=== PATIENT | female | born 1940 | race Caucasian/White ===

== ENCOUNTER 2024-01-29 13:27 | Emergency (ER) | payer MEDICARE, SELFPAY ==
--- NOTE | 2024-01-29 13:34 | ED.MUSCINJ ---
HPI-Injury
General
Chief Complaint: Musculo-Skeletal Complaint
Source: patient, ambulance crew and [facility] records
Exam Limitations: dementia
Time Seen by Provider: 01/29/24 13:34
Nursing documentation reviewed up to this point in time: agreed with
History of Present Illness-Injury
Initial Injury comments:
83-year-old female who presents from [facility] dementia unit for left leg pain. Pt poor historian, complaining of left knee pain mainly but also low back pain, points up and down left buttock to identify where pain is, continues to deny right
leg pain. She is constantly moving and kicking out her right leg seemingly uncontrollably. Per EMS, no known recent falls
Son arrives and states that patient had a fall with a left hip and pelvis fracture in May 2023, she has been in the [facility]ci since and is nonambulatory, she is wheelchair-bound. He states that 1 week ago the staff found patient on the
floor in her bedroom, no witnessed fall, no apparent injury at that time so not medically evaluated. Yesterday staff called son to say she was having pain in the left leg pointing to her knee. Today when son arrived she was acting 'very
different' constantly moving her right leg complaining of pain in the right leg and is surprised that she is now complaining of left leg pain. He states the right leg kicking is new.
Past History
Past History
ED Past Medical History: Hypothyroidism, Psychiatric (Mood disorder, dementia) and Other (Slight Dementia, )
ED Past Surgical History: Appendectomy
Social History
Tobacco: Non-smoker
Alcohol: None
Personal:
Living: fci
Review of Systems
Review of Systems
Allergies reviewed?: Yes
Unable to obtain full review of systems at this time due to: dementia
Other source history: family and ambulance crew
All Other Systems: ROS reviewed and negative except as documented in HPI and ROS
Constitutional: Denies fever
Respiratory: Denies trouble breathing
Cardiac: Denies chest pain
ABD/GI: Denies abdominal pain, vomiting, diarrhea or anorexia
Musculoskeletal: Reports other (pain left LE); Denies edema
Skin: Reports no symptoms
Phy Exam
Physical Exam
Physical Exam:
GENERAL: No acute distress. A&O to name 'hospital' knows her son.
CONSTITUTIONAL: Afebrile.
EYES: PERRL, conjunctivae normal
ENMT: moist mucus membranes, Pharynx nl
RESPIRATORY: Regular respirations, nonlabored, lungs clear.
CARDIOVASCULAR: Regular rate and rhythm, no murmurs, no rubs.
GI: Soft, nontender, normal BS
MUSCULOSKELETAL: Moves with ease. Well perfused. No edema. Flailing right leg around, full ROM, can stop on demand momentarily then starts again with constant movement of the right leg, 'I can't stop, I don't know why I'm doing that.'
SKIN: Warm, dry, pink
PSYCH: Normal mood and affect. Well kept, interactive and appropriate
NEUROLOGIC: Awake, alert and oriented x 2. No focal neurological deficits. Strength equal throughout.
Injury Course
Orders/Labs/Results
Orders:
Orders
01/29/24 13:42
CR Hip - LT w/wo Pel 2-3 Vw* Urgent
Comment:
Reason For Exam: pain left leg, dementia, unclear hx
Include a pelvis x-ray?: Yes
Lumbar Spine, 2 or 3 View [CR Lumbar Spine 2 Or 3 Views] Urgent
Comment:
Reason For Exam: pain left leg, dementia, unclear hx
01/29/24 13:43
CR Knee - Left 4 Or More View* Urgent
Comment:
Reason For Exam: pain left leg/points to knee dementia, unclear hx
01/29/24 15:21
Lorazepam [Ativan] 0.5 mg IV NOW STA
01/29/24 15:25
Complete Blood Count/With Diff Urgent
Comprehensive Metabolic Panel Urgent
Urinalysis Reflex To Culture Urgent
Date Specimen was Collected: 01/29/24
Time Specimen was Collected: 15:23
01/29/24 17:03
CT Head W/o Iv Contrast Urgent
Comment:
Reason For Exam: new jerky movements, uncontrollable right leg
01/29/24 17:27
Electrocardiogram (*1) Urgent
Reason for Study: QTc Monitoring
EKG- Treatment ONCE
01/29/24 17:35
Haloperidol Lactate [Haldol] 1 mg IV NOW STA
01/29/24 18:11
Haloperidol Lactate [Haldol] 1 mg IM NOW STA
Abnormal Lab Results
01/29/24
15:25
WBC 11.3 H 10^3/uL
(4.8-10.8)
RBC 4.10 L 10^6/uL
(4.20-5.40)
Hct 35.8 L %
(37.0-47.0)
Abs Immat Gran (auto) 0.1 H 10^3/uL
(0-0.05)
Absolute Neuts (auto) 8.8 H 10^3/uL
(1.4-6.5)
Absolute Lymphs (auto) 0.9 L 10^3/uL
(1.2-3.4)
Absolute Monos (auto) 1.2 H 10^3/uL
(0.1-0.6)
Immature Gran % 1.1 H %
(0-0.5)
Neutrophils % 77.4 H %
(42.2-75.2)
Lymphocytes % 8.3 L %
(20.5-51.1)
Monocytes % 10.2 H %
(1.7-9.3)
BUN 23 H mg/dl
(7-17)
Creatinine 1.3 H mg/dL
(0.6-1.0)
AST 39 H U/L
(14-36)
Urine Bilirubin 1+ A
(Negative)
01/29/24 15:25
01/29/24 15:25
Enamel Sprayer consulted with Physician
Enamel Sprayer consulted with physician?: Yes
Name of Physician Consulted: Jeanine
MDM/Problems Addressed
Differential Diagnosis Includes:
sciatica, fracture, Arthritis
worsening dementia, neuropsychiatric reaction, anxiety
MDM/Problems Addressed:
83-year-old female who presents from [facility] dementia unit for left leg pain. Pt poor historian, complaining of left knee pain mainly but also low back pain, points up and down left buttock to identify where pain is, continues to deny right
leg pain. She is constantly moving and kicking out her right leg seemingly uncontrollably. Per EMS, no known recent falls
Son arrives and states that patient had a fall with a left hip and pelvis fracture in May 2023, she has been in the [facility]ci since and is nonambulatory, she is wheelchair-bound. He states that 1 week ago the staff found patient on the
floor in her bedroom, no witnessed fall, no apparent injury at that time so not medically evaluated. Yesterday staff called son to say she was having pain in the left leg pointing to her knee. Today when son arrived she was acting 'very
different' constantly moving her right leg complaining of pain in the right leg and is surprised that she is now complaining of left leg pain. He states the right leg kicking is new.
spoke with JOSSE Linares at [facility]. She states the right leg movement is new today.
3:00 PM:
X-ray left knee DJD, nothing acute
X-ray left hip: Radiology report reviewed: IMPRESSION:
There is no acute fracture
There is severe joint space narrowing with subchondral sclerosis, protrusio acetabuli and osseous remodeling of both the left acetabulum and left femoral head consistent with severe posttraumatic degenerative osteoarthritis which has developed in
the interval since the prior study.
X-ray L-spine: Radiology report reviewed:
IMPRESSION:
There is 80% acute versus old compression fracture of the superior endplate of L1
There is 25% acute versus old compression fracture of the superior endplate of L5
Degenerative disc disease with disc space narrowing at L1-2, L4-5 and L5-S1
Xray reports reviewed with son and also JOSSE Linares at [facility].
Pt continues to be very restless, constantly moving right leg. Hx anxiety, Ativan standing order at [facility]. Will give dose now and reevaluate
3:30 PM
CBC normal
CMP with no clinically significant abnormality, baseline CKD
U/A neg
4:30 PM:
After Ativan, patient more calm, still constantly moving around on the stretcher
5:30 PM:
Patient continues to be restless, moving her extremities, undressing herself, case discussed with Dr. Solorzano who recommends Haldol 1 mg
Discussed plan with son who is in agreement.
EKG: NSR normal QT
7:00 PM:
Head CT IMPRESSION:
There are no acute intracranial abnormalities.
There is moderate diffuse cortical atrophy with mild nonspecific white matter changes as described above.
Pt much more calm after Haldol IM, alert and pleasant.
No medical reason to admit her
Son at bedside comfortable with this. He agrees it is most likely worsening dementia and states he knows 'she has a dying brain.'
Son states he is aware pt is a fall risk, they are aware at the [facility] also.
Attempt x 2 to notify [facility]ci of patient transfer back and give report, no answer both times, left a message on the [facility] [place] center answering service to call back
*Critical Care Note
Total Time (30-74mins, 75-104mins- exclusive of procedures): Not Applicable
ED Attending Note
-
Portions of this chart may have been created with voice recognition software.� Occasional wrong word or��sound alike� substitutions may have occurred due to the inherent limitations of voice recognition software.
Discharge Plan
Departure
Patient Disposition: Penitentiary/SNF
Date of Disposition: 01/29/24
Time of Disposition: 19:45
Condition: Fair
Discharge Problem:
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
Instructions: Myoclonus
Prescriptions:
No Action
acetaminophen 325 mg Tablet
650 mg PO Q6H
sertraline 100 mg Tablet
100 mg PO DAILY@2100
potassium chloride 10 mEq Tablet Extended Release
10 meq PO DAILY
levothyroxine 88 mcg Tablet
88 mcg PO DAILY
lorazepam 0.5 mg Tablet
0.5 mg PO HS PRN (Reason: anxiety)
memantine 5 mg Tablet
5 mg PO DAILY
Referrals:
UNKNOWN - PT DOES,NOT KNOW [Family Provider] -
Activity Restrictions/Additional Instructions:
The abnormal movements of Ms. Melendez's legs are most likey due to her dementia.
Medical workup here today, including bloodwork, U/A and head CT show nothing worrisome
Please have her doctor evaluated her further for the myoclonic movements of her extremities
Pt received Ativan 0.5 mg IV with little help of spasms
Pt received Haldol 1 mg IM with relief of spastic leg movement
Interventions
Interventions:
*Risk Screen - Suicide Last Done: 01/29/24 13:34
*General Assessment Last Done: 01/29/24 13:34
*Neglect/Abuse Screening Last Done: 01/29/24 13:34
ED- Fall Risk Assessment Last Done: 01/29/24 13:35
*Nursing Disposition Last Done: 01/29/24 21:21
ED-Musculoskeletal Assessment Last Done: 01/29/24 13:38
Discharge Date and Time
Discharge Date/Time: 01/29/24 21:22
Print Language: SOMALI
[2024-01-29] MEDS: ATIVAN 0.5 MG IV (15:25)
[2024-01-29 15:32] LABS: % Basophils 0.5 % (0-2); % Eosinophils 2.5 % (0-6); % Immature Granulocytes 1.1 % (0-0.5); % Lymphocytes 8.3 % (20.5-51.1); % Monocytes 10.2 % (1.7-9.3); % Neutrophils 77.4 % (42.2-75.2); Absolute Basophils 0.1 10^3/uL (0-0.2); Absolute Eosinophils 0.3 10^3/uL (0-0.7); Absolute Immature Granulocytes 0.1 10^3/uL (0-0.05); Absolute Lymphocytes 0.9 10^3/uL (1.2-3.4); Absolute Monocytes 1.2 10^3/uL (0.1-0.6); Absolute Neutrophils 8.8 10^3/uL (1.4-6.5); Hematocrit 35.8 % (37.0-47.0); Hemoglobin 12.2 g/dL (12.0-16.0); Mean Corp Hgb Conc. 34.1 g/dL (33.0-37.0); Mean Corpuscular Hgb 29.8 pg (27.0-31.0); Mean Corpuscular Volume 87.3 fL (81.0-99.0); Mean Platelet Volume 10.2 fL (7.4-10.4); Nucleated Red Blood Cells % 0 %; Platelet Count 259 10^3/uL (130-400); Red Cell Dist. Width 14.2 % (11.5-14.5); Urine Albumin Negative (Neg - Trace); Urine Bilirubin 1+ (Negative); Urine Character Clear (Clear); Urine Color Yellow; Urine Glucose Negative (Negative); Urine Ketone Negative (Negative); Urine Leukocyte Negative (Negative); Urine Nitrite Negative (Negative); Urine Occult Blood Negative (Negative); Urine Specific Gravity 1.015 (<1.030); Urine Urobilinogen Negative (Neg - 1+); White Blood Cell Count 11.3 10^3/uL (4.8-10.8)
[2024-01-29 15:41] VITALS: BP 130/98
[2024-01-29 15:58] LABS: ALT (SGPT) 27 U/L (0-35); AST (SGOT) 39 U/L (14-36); Albumin 3.7 g/dl (3.5-5.0); Alkaline Phosphatase 117 U/L (38-126); Blood Urea Nitrogen 23 mg/dl (7-17); Calcium 9.4 mg/dl (8.4-10.2); Carbon Dioxide 22 mmol/L (22-30); Chloride 106 mmol/L (98-107); Estimated Creatinine Clearance 26 ml/min; Glucose 85 mg/dl (70-99); Sodium 138 mmol/L (135-145); Total Bilirubin 0.9 mg/dl (0.2-1.3); Total Protein 6.4 g/dl (6.3-8.2); eGFR 41.31
[2024-01-29] MEDS: HALDOL 1 MG IM (18:11)
[2024-01-29 21:15] VITALS: BP 140/39
== END 2024-01-29 21:22 ==
LOC: EMR 13:27
PROVIDERS: Registered Nurse; EMERGENCY PHYSICIAN Emergency Medicine
DX: M79.605 Pain in left leg (principal); F03.94 Unspecified dementia, unspecified severity, with anxiety; M25.562 Pain in left knee; M54.50 Low back pain, unspecified; Z99.3 Dependence on wheelchair; G25.3 Myoclonus
CPT/HCPCS: 99285; 96374; 96372; 70450; 72100; 73502; 73564; 80053; 81003; 85025; 93005

== ENCOUNTER 2024-02-09 21:18 | Inpatient (IN) | payer MEDICARE, SELFPAY ==
[2024-02-09] VITALS (8 sets, daily range): BP systolic 107–159; BP diastolic 48–73; BMI 15.9
[2024-02-09 17:50] LABS: Urine Albumin Trace (Neg - Trace); Urine Bilirubin Negative (Negative); Urine Character Clear (Clear); Urine Color Yellow; Urine Glucose Negative (Negative); Urine Ketone Negative (Negative); Urine Leukocyte Negative (Negative); Urine Nitrite Negative (Negative); Urine Occult Blood Negative (Negative); Urine Specific Gravity 1.025 (<1.030); Urine Urobilinogen Negative (Neg - 1+)
[2024-02-09 18:03] LABS: ALT (SGPT) 40 U/L (0-35); AST (SGOT) 44 U/L (14-36); Albumin 3.4 g/dl (3.5-5.0); Alkaline Phosphatase 111 U/L (38-126); Blood Urea Nitrogen 29 mg/dl (7-17); Calcium 9.5 mg/dl (8.4-10.2); Carbon Dioxide 22 mmol/L (22-30); Chloride 105 mmol/L (98-107); Estimated Creatinine Clearance 22 ml/min; Glucose 101 mg/dl (70-99); Potassium 3.8 mmol/L (3.5-5.1); Sodium 136 mmol/L (135-145); Total Bilirubin 0.8 mg/dl (0.2-1.3); Total Protein 6.3 g/dl (6.3-8.2); eGFR 34.79
--- NOTE | 2024-02-09 18:13 | ED.GENMED ---
History of Present Illness
General
Chief Complaint: Change in Mental Status
Time Seen by Provider: 02/09/24 17:07
History of Present Illness
History of Present Illness:
83-year-old female history of dementia presenting with altered mental status. Son at bedside states that patient has been progressively more confused and lethargic over the past week. Son at bedside states that patient was evaluated here last week
for similar symptoms and was discharged after having a negative workup. Son denies any recent falls or head trauma. Son denies recent fever, cough, vomiting. History difficult to obtain secondary to dementia. Per son, patient is at baseline
mental status.
Past History
Past History
ED Past Medical History: Hypothyroidism, Psychiatric (Mood disorder, dementia) and Other (Slight Dementia, )
ED Past Surgical History: Appendectomy
Social History
Tobacco: Non-smoker
Alcohol: None
Personal:
Living: retirement
Phy Exam
Physical Exam
Physical Exam:
General: Alert, no acute distress
Head: NCAT
Eyes: clear conjunctiva. PERRLA. EOMI
Neck: supple
Cardiac: regular rate and rhythm, no murmur
Lungs: clear to auscultation bilaterally. No wheezes, rales, or rhonchi. Speaking full unlabored sentences. No respiratory distress.
Abdomen: soft, nondistended nontender. No rebound or guarding. colostomy in place.
MSK: no lower extremity edema bilaterally. No deformity
Skin: warm, dry
Neuro: Alert and oriented x2, to self and place only. no focal deficits. 5/5 strength bilateral upper and lower extremities. sensation intact. visual hunt intact. normal finger to nose. no slurred speech. no facial droop.
Scores
NIH Stroke Score
Level of Consciousness: 0 - Alert
LOC Questions: 2-Neither correct
LOC Commands: 0-Performs both correctly
Best Horizontal Gaze: 0-Normal
Visual Hunt: 0=Normal, no visual loss
Facial Palsy: 0=Normal, symmetrical
Motor - Right Arm: 0=No drift 10 seconds
Motor - Left Arm: 0=No drift 10 seconds
Motor - Right Le-No drift 5 seconds
Motor - Left Le-No drift 5 seconds
Limb Ataxia: 0-Absent
Sensation: 0-Normal
Best Language: 0-No aphasia
Dysarthria: 0-Normal
Extinction and Inattention: 0-No abnormality
Total Score:: 2
Course
Orders/Labs/Results
Orders:
Orders
02/09/24 17:34
Complete Blood Count/With Diff Urgent
Comprehensive Metabolic Panel Urgent
UA Reflex to Culture [Urinalysis Reflex To Culture] Urgent
Date Specimen was Collected: 02/09/24
Time Specimen was Collected: 17:33
02/09/24 17:56
CT Head W/o Iv Contrast Urgent
Comment:
Reason For Exam: ams
02/09/24 20:05
Aspirin 325 mg PO NOW STA
Atorvastatin [Lipitor] 40 mg PO NOW STA
Clopidogrel Bisulfate [Plavix] 75 mg PO NOW STA
Abnormal Lab Results
02/09/24
17:34
WBC 11.5 H 10^3/uL
(4.8-10.8)
RBC 3.66 L 10^6/uL
(4.20-5.40)
Hgb 10.8 L g/dL
(12.0-16.0)
Hct 32.9 L %
(37.0-47.0)
MCHC 32.8 L g/dL
(33.0-37.0)
Abs Immat Gran (auto) 0.2 H 10^3/uL
(0-0.05)
Absolute Neuts (auto) 9.3 H 10^3/uL
(1.4-6.5)
Absolute Lymphs (auto) 0.7 L 10^3/uL
(1.2-3.4)
Absolute Monos (auto) 1.1 H 10^3/uL
(0.1-0.6)
Immature Gran % 1.6 H %
(0-0.5)
Neutrophils % 81.2 H %
(42.2-75.2)
Lymphocytes % 5.7 L %
(20.5-51.1)
Monocytes % 9.5 H %
(1.7-9.3)
BUN 29 H mg/dl
(7-17)
Creatinine 1.5 H mg/dL
(0.6-1.0)
Glucose 101 H mg/dl
(70-99)
AST 44 H U/L
(14-36)
ALT 40 H U/L
(0-35)
Albumin 3.4 L g/dl
(3.5-5.0)
02/09/24 17:34
02/09/24 17:34
Vital Signs
Initial and Last Documented VS:
Initial Vital Signs
Temp Pulse Resp BP Pulse Ox
98.4 F 59 16 146/66 98
02/09/24 17:11 02/09/24 17:11 02/09/24 17:11 02/09/24 17:11 02/09/24 17:11
Last Documented Vital Signs
Temp Pulse Resp BP Pulse Ox
98.4 F 59 16 107/52 96
02/09/24 17:11 02/09/24 17:11 02/09/24 17:11 02/09/24 20:00 02/09/24 19:28
MDM/Problems Addressed
MDM/Problems Addressed:
Patient presents to the Emergency Department with ___altered mental status
Number and Complexity of Problems Addressed at the Encounter
� Chronic conditions affecting care: Dementia
� Acute Exacerbation and/or Progression of Chronic Illness:
� Differential Diagnosis includes: UTI, intracranial hemorrhage, electrolyte abnormality, dehydration, progression of dementia
Amount and/or Complexity of Data to be Reviewed and Analyzed
� I performed an independent evaluation of and my interpretation is:
EKG:
CT:
Xrays:
Laboratory Studies: UA negative for UTI. transaminitis (similar to previous). Creatinine 1.5 (previous 1.3-1.5, baseline)
Other:
� Review of other/old records reveals:
� Clinical information was obtained by an independent historian:
� Prescriptions/Medications Considered but not given:
� Further testing considered but not performed:
Risk of Complications and/or Morbidity or Mortality of Patient Management
� Social Determinants of health affecting care:
� Discussion with other providers (PCP, Hospitalists, Consultants, etc):
� Escalation of care including admission/observation vs risk of discharge considered: 83yoF presenting with altered mental status. CT head shows new acute to subacute right occipital lobe infarction. NIHSS 2. Pt not TNK candidate given last known
normal >24hrs ago. Discussed with neurology who recommended admission, aspirin 324mg, plavix 75mg, and atorvastatin 40mg. Discussed with hospitalist. Updated family at bedside.
*Critical Care Note
Total Time (30-74mins, 75-104mins- exclusive of procedures): Not Applicable
ED Attending Note
-
Portions of this chart may have been created with voice recognition software.� Occasional wrong word or��sound alike� substitutions may have occurred due to the inherent limitations of voice recognition software.
Discharge Plan
Departure
Patient Disposition: Admit
Date of Disposition: 02/09/24
Time of Disposition: 20:15
Presentation/result/management discussed w/ accepting MD/DO: Hospitalist
Discharge Problem:
Stroke
Prescriptions:
No Action
acetaminophen 325 mg Tablet
650 mg PO Q6HPRN PRN (Reason: temp>100)
sertraline 100 mg Tablet
100 mg PO DAILY
potassium chloride 10 mEq Tablet Extended Release
10 meq PO DAILY
levothyroxine 88 mcg Tablet
88 mcg PO DAILY
lorazepam 0.5 mg Tablet
0.5 mg PO BID
memantine 5 mg Tablet
5 mg PO BID
buspirone 5 mg tablet
5 mg PO TID
amiodarone 200 mg Tablet
200 mg PO DAILY
gabapentin 100 mg capsule
100 mg PO BID
nystatin 100,000 unit/gram Powder
1 applic TOPICAL BIDPRN PRN (Reason: prior to change)
cholecalciferol (vitamin D3) 25 mcg (1,000 unit) Tablet
50 mcg PO DAILY
Referrals:
UNKNOWN - PT DOES,NOT KNOW [Family Provider] -
Interventions
Interventions:
*Risk Screen - Suicide Last Done: 02/09/24 17:11
*General Assessment Last Done: 02/09/24 17:11
*Neglect/Abuse Screening Last Done: 02/09/24 17:11
ED- Fall Risk Assessment Last Done: 02/09/24 17:11
*ED COVID-19 Vaccine History Last Done: 02/09/24 17:11
ED- Pulmonary Assessment Last Done: 02/09/24 17:11
ED- Neurological Assessment Last Done: 02/09/24 17:11
ED- Cardiac Assessment Last Done: 02/09/24 17:11
ED Swallowing Screen Last Done: 02/09/24 20:21
Discharge Date and Time
Print Language: [place]
[2024-02-09 18:16] LABS: % Basophils 0.4 % (0-2); % Eosinophils 1.6 % (0-6); % Immature Granulocytes 1.6 % (0-0.5); % Lymphocytes 5.7 % (20.5-51.1); % Monocytes 9.5 % (1.7-9.3); % Neutrophils 81.2 % (42.2-75.2); Absolute Basophils 0.1 10^3/uL (0-0.2); Absolute Eosinophils 0.2 10^3/uL (0-0.7); Absolute Immature Granulocytes 0.2 10^3/uL (0-0.05); Absolute Lymphocytes 0.7 10^3/uL (1.2-3.4); Absolute Monocytes 1.1 10^3/uL (0.1-0.6); Absolute Neutrophils 9.3 10^3/uL (1.4-6.5); Hematocrit 32.9 % (37.0-47.0); Hemoglobin 10.8 g/dL (12.0-16.0); Mean Corp Hgb Conc. 32.8 g/dL (33.0-37.0); Mean Corpuscular Hgb 29.5 pg (27.0-31.0); Mean Corpuscular Volume 89.9 fL (81.0-99.0); Nucleated Red Blood Cells % 0 %; Red Blood Cell Count 3.66 10^6/uL (4.20-5.40); Red Cell Dist. Width 13.7 % (11.5-14.5); White Blood Cell Count 11.5 10^3/uL (4.8-10.8)
[2024-02-09 18:23] LABS: Platelet Count 382 10^3/uL (130-400)
[2024-02-09] MEDS: PLAVIX 75 MG PO (20:24)
[2024-02-09] MEDS: ASPIRIN 325 MG PO (20:24)
--- NOTE | 2024-02-09 20:25 | HPS.HSE ---
Addendum entered and electronically signed by Paul Stewart DO 02/09/24 22:01:
Patient seen and examined independently. Agree with findings and plan as set forth by ALEXUS Shin.
Patient is an 83y F with PMH significant for dementia, A-Fib and hypothyroidism who presents to ED for evaluation of confusion and lethargy. Patient was seen here in the ED about 10 dys ago with similar complaints. Work-up at that time was
unremarkable including CT head. Patient has continued to have worsening symptoms since including poor PO intake, increased sleeping and decreased interaction. Patient complains of pain in the RLE - but has no tenderness on exam or evident
deformity.
Ass:
Subacute CVA
Altered Mental Status secondary to the above
Paroxysmal A-Fib
CKD III
Anemia of Chronic Disease
Anxiety / Depression
Senile Dementia
Hypothyroidism
Plan:
Admit for further evaluation and treatment.
CT done today shows new CVA in R occipital lobe compared to recent prior.
DAPT started for now.
? risk / benefit of OAC given dementia / fall risk and A-Fib with new stroke?
Neurology evaluation in the AM.
PT / OT evaluations.
Hold outpatient sedating meds.
Continue T4 supplementation.
Follow for any new neurologic deficits or other complaints.
Original Note:
Family Physician
-
Family Physician: NOT KNOW UNKNOWN - PT DOES
Chief Complaint
-
confusion
lethargic
History of Present Illness
83 year old with PMH for dementia,hypothyroidism, atrial fib, depression, anxiety presented to us with confusion, lethargic, very limited interaction, sleeping more than usual worsening for past ten days. today she looked paled, staring at the wall
which prompted nursing staff to send her to the hospital. patient is from Dementia unit. very poor historian. obtained history from son. patient denied any acute pain. patient was here ten days ago with involuntary movement of her legs. patient is
wheelchair bound. upon my assessment, she does not have any focal weakness.
CT with subacute CVA. received asa and Plavix in ER. admitting for further management.
Medical History
Past Medical History
Past Medical History: Reports Other
Additional Past Medical History:
atrial fib
depression
anxiety
hypothyroidism
Past Surgical History: Reports Other
Additional Past Surgical History:
hip surgery
appendectomy
Social History
Tobacco: Non-smoker
Alcohol: Occasional
Drug: None
Personal: Single
Living: [facility]
Family History
Family History: Not pertinent
Allergies / Home Medications
Allergies reflects when Allergies were last updated in [employer].
Home Medications with original date entered in [employer]
Allergy/Medication List:
Allergies
Allergy/AdvReac Type Severity Reaction Status Date / Time
No Known Allergies Allergy Verified 02/09/24 17:33
Home Medications
acetaminophen 325 mg tablet 650 mg PO Q6HPRN PRN temp>100 05/29/23
levothyroxine 88 mcg tablet 88 mcg PO DAILY 05/29/23
lorazepam 0.5 mg tablet 0.5 mg PO BID 05/29/23
memantine 5 mg tablet 5 mg PO BID 05/29/23
potassium chloride 10 mEq tablet,extended release 10 meq PO DAILY 05/29/23
sertraline 100 mg tablet 100 mg PO DAILY 05/29/23
amiodarone 200 mg tablet 200 mg PO DAILY 02/09/24
buspirone 5 mg tablet 5 mg PO TID 02/09/24
cholecalciferol (vitamin D3) 25 mcg (1,000 unit) tablet 50 mcg PO DAILY 02/09/24
gabapentin 100 mg capsule 100 mg PO BID 02/09/24
nystatin 100,000 unit/gram topical powder 1 applic topical BIDPRN PRN prior to change 02/09/24
Review of Systems
-
Unable to obtain full review of systems at this time due to: Dementia
Physical Exam
Vital Signs
Vital Signs
Temp Pulse Resp BP Pulse Ox
98.4 F 59 16 107/52 96
02/09/24 17:11 02/09/24 17:11 02/09/24 17:11 02/09/24 20:00 02/09/24 19:28
Physical Exam
General: Well Developed, Well Nourished and No Apparent Distress
HEENT: NormoCephalic, Moist mucous membranes and Atraumatic
Respiratory: Clear
Cardiac: S1/S2 and Regular Rhythm; No Murmur or Rub
GI: Soft, Non Tender, Non Distended and Normal Bowel Sounds; No Organomegaly
Rectal: Deferred by Provider
Musculoskeletal: No Clubbing, No Cyanosis and No Edema
Skin: No Rash
Psych: Confused
Laboratory Results
-
02/09/24 17:34
02/09/24 17:34
Laboratory Results
Total Bilirubin 0.8 mg/dl (0.2-1.3) 02/09/24 17:34
AST 44 U/L (14-36) H 02/09/24 17:34
ALT 40 U/L (0-35) H 02/09/24 17:34
Alkaline Phosphatase 111 U/L (38-126) 02/09/24 17:34
Data Reviewed
-
CT Scan: Report Reviewed by me
Lab Data: Labs Reviewed by me
Impression/Plan
-
#subacute CVA
-CT with In the right occipital lobe, there has been development of a focal region of decreased density, which very likely represents a region of acute to subacute infarction. No evidence for associated hemorrhage.
-asa and Plavix,statin continued
-obtain a1c, lipid profile
-PT/OT consult
-neuro consult
#leukocytosis likely stress reaction
-wbc 11.5
-UA negative
#anemia likely chronic disease
-hgb stable at 10.8
-no active bleeding
-ctm
#CKD stage 3b
-cr 1.5
-ctm
#chronic transaminase
-AST 44,ALT 40
-trend
#atrial fib likely paroxysmal
-obtain EKG
-HR controlled
-amiodarone continued
#depression/anxiety/dementia
-gabapentin,lorazepam held
-memantine, sertraline continued
-BuSpar prn for agitation
#hypothyroidism
-levothyroxine continued
#DVT prophylaxis
-scd
#CODE status
-DNR
[2024-02-09] MEDS: LIPITOR 40 MG PO (20:26)
[2024-02-10] VITALS (16 sets, daily range): BP systolic 119–168; BP diastolic 55–104; PULSE 58–60; O2SAT 96–98; BMI 15.9
[2024-02-10 06:25] LABS: Hematocrit 38.7 % (37.0-47.0); Hemoglobin 12.9 g/dL (12.0-16.0); Mean Corp Hgb Conc. 33.3 g/dL (33.0-37.0); Mean Corpuscular Hgb 29.1 pg (27.0-31.0); Mean Corpuscular Volume 87.2 fL (81.0-99.0); Mean Platelet Volume 9.8 fL (7.4-10.4); Platelet Count 331 10^3/uL (130-400); Red Blood Cell Count 4.44 10^6/uL (4.20-5.40); Red Cell Dist. Width 13.7 % (11.5-14.5); White Blood Cell Count 9.4 10^3/uL (4.8-10.8)
[2024-02-10 06:32] LABS: ALT (SGPT) 39 U/L (0-35); AST (SGOT) 37 U/L (14-36); Albumin 3.4 g/dl (3.5-5.0); Alkaline Phosphatase 120 U/L (38-126); Blood Urea Nitrogen 28 mg/dl (7-17); Calcium 9.8 mg/dl (8.4-10.2); Carbon Dioxide 25 mmol/L (22-30); Chloride 106 mmol/L (98-107); Estimated Creatinine Clearance 24 ml/min; Glucose 83 mg/dl (70-99); HDL Cholesterol 52 mg/dl; LDL Cholesterol, Calculated 97 mg/dl; Potassium 4.2 mmol/L (3.5-5.1); Sodium 139 mmol/L (135-145); Total Bilirubin 0.8 mg/dl (0.2-1.3); Total Cholesterol 184 mg/dl (50-199); Total Protein 6.3 g/dl (6.3-8.2); Triglyceride 175 mg/dl (10-149); Very Low Density Lipoprotein 35 mg/dl (0-30)
[2024-02-10 08:37] LABS: Glycohemoglobin (HgbA1c) 5.2 % (4.0-5.6)
[2024-02-10] MEDS: NAMENDA 5 MG PO ×2 (09:43→22:28)
[2024-02-10] MEDS: SYNTHROID 88 MCG PO (09:44)
[2024-02-10] MEDS: ZOLOFT 100 MG PO (09:44)
[2024-02-10] MEDS: PLAVIX 75 MG PO (09:50)
[2024-02-10] MEDS: LOW STRENGTH ASPIRIN 81 MG PO (09:50)
[2024-02-10] MEDS: PACERONE 200 MG PO (09:50)
[2024-02-10] MEDS: TYLENOL 650 MG PO (09:50)
[2024-02-10] MEDS: BUSPAR 5 MG PO ×2 (09:50→22:28)
[2024-02-10] MEDS: VITAMIN D3 (cholecalciferol) 50 MCG PO (09:51)
--- NOTE | 2024-02-10 10:03 | CON.NEURO4 ---
Consultation - Neurology 4
-
CONSULTING PHYSICIAN: Claudia Chow
REFERRING PHYSICIAN: ER
DICTATED BY: Claudia Chow
DATE/TIME OF REQUEST: 02/10/24
DATE/TIME OF CONSULTATION: 02/10/24
Reason for Consultation: Stroke on CT head
History of Present Illness:
Patient is an 83-year-old woman with a past no history of dementia, hypothyroidism, atrial fibrillation, anxiety and depression who presented to hospital with 7 to 10 days of worsening mental status which is a change from her normal. She was sent
in by nursing staff at her place of living due to these concerns and CT head noncontrast showed a right occipital lobe ischemic stroke with no hemorrhage. At baseline patient on not anticoagulation but does have history of atrial fibrillation.
Patient this time does not notice any headache or vision difficulties further history is limited due to limited insight and her dementia.
Past Medical History: Dementia, atrial fibrillation, hypothyroidism, anemia, anxiety/depression
Surgical History: Hip surgery, appendectomy
Family History: Non-contributory
Social History: , son son as family as well, lives in dementia care unit, no tobacco or alcohol
Review of Symptoms:
Patient denies any fever, headache, chest pain, shortness of breath, GI or symptoms.
Physical Exam:
Well appearing elderly woman no distress, eyes clear oropharnyx clear, no neck masses, heart rate regular no murmur, breathing unlabored, abdomen soft non tender, no lower extremity edema
Neurologic Examination:
Awake and alert, conversational, dementia apparent, oriented to hospital, obeys commands, no aphasiaOn cranial nerve assessment, pupils are 3 mm bilateral, round and reactive to light and accommodation. Left inferior quadrantopia present.
Extraocular movements are intact. Facial sensations are intact and bilaterally symmetrical, there is no facial asymmetry. Hearing is intact bilaterally to normal conversation volume. Tongue palate and uvula are midline. Sternocleidomastoid
strengths are full bilaterally. Motor strengths are 5/5 bilateral upper and lower extremities on medical research [place] scale. There is no drift or involuntary movement noted. Deep tendon reflexes are 2+ bilateral upper and lower extremities and
Babinski is absent bilaterally. Sensations of pain, touch, temperature and vibration are intact and bilaterally symmetrical. There was no extinction noted on double simultaneous stimulation. Coordination is intact by finger to nose bilaterally.
Neuro Imaging: CT head right OUTREACH MANAGER occipital ischemic stroke late acute to early subacute
Impressions
1. Right OUTREACH MANAGER territory ischemic stroke affecting vision, mental status, left sided inferior quadrantopia. Presumed atrial fibrillation and cardiac embolism as cause
2. Atrial fibrillation, from my standpoint not seeing any strong contraindication to anticoagulation, given mostly wheelchair bound not a significant falls risk, no history of known GI, SVP MONETIZATION or systemic bleeding that would make her prohibitive for
anticoagulation
3. Dementia most likely Alzheimer's versus vascular as most likely
Recommendations:
1. Would be acceptable for stopping all antiplatelets and starting on Apixaban as soon as 8/
2. Neurologic checks and NIH scales
3. Goal normotension
4. Not seeing utility to checking TTE for stroke workup unless other clinical concerns arise
5. Not seeing utility in checking brain MRI with clearly visualized stroke, or vessel imaging given this would not blade changer, OUTREACH MANAGER strokes do not originate from carotid so carotid ultrasound also would not blade changer
6. Minimize sedating medications
7. Should not drive given dementia and an occipital lobe stroke affecting vision
Discussed patient care with: Patient
--- NOTE | 2024-02-10 10:13 | PTCARENOTE ---
Assumed care at 0700. VSS. Agitated, yelling 'I want to go home!' Oriented to self, knew she was in a hospital but unable to name which, disoriented to date/time. NIHSS 3 d/t incorrect LOC questions, and L eye field cut on L side. Patient does have
weakness in left leg, but has history of L hip fracture last year, had no surgical intervention and has been wheelchair bound d/t this problem since.
--- NOTE | 2024-02-10 10:44 | PTOTSP ---
Dysphagia Evaluation
Oral and pharyngeal stages of swallowing suspected to be grossly within functional limits at this time.
Patient with signs concerning for at least mild changes to receptive and expressive language as well as cognitive linguistic changes (i.e., decreased orientation, decreased memory). Family feels language is at baseline given her dementia.
Occasional decreased attention and/or vision to left noted when patient viewing pictures/reading. Further assessment warranted.
Recommend:
1. Regular, Thin Liquids
2. Medications as best tolerated
3. Strategies: upright to 90 degrees, distant supervision, general aspiration precautions
4. Oral care 3x daily
5. Will follow up briefly at the acute care level for further assessment of language and cognition as appropriate.
--- NOTE | 2024-02-10 11:16 | W.PN.HOSP.TC ---
Today's Communication/Plan
-
Continue with NIH stroke scale
Monitor mentation
Continue aspirin/Plavix
Assessment / Plan
Assessment / Plan
General: Well Developed, Well Nourished and No Apparent Distress
HEENT: NormoCephalic, Moist mucous membranes and Atraumatic
Respiratory: Clear
Cardiac: S1/S2 and Regular Rhythm; No Murmur or Rub
GI: Soft, Non Tender, Non Distended and Normal Bowel Sounds; No Organomegaly, ostomy
Musculoskeletal: No Clubbing, No Cyanosis and No Edema
Skin: No Rash
Psych: Confused
#subacute CVA likely secondary to atrial fibrillation/cardioembolic
-CT with In the right occipital lobe, there has been development of a focal region of decreased density, which very likely represents a region of acute to subacute infarction. No evidence for associated hemorrhage.
-asa and Plavix,statin continued
-PT/OT consult
-a1c 5.1. LDL at 97.
-no need for further imaging per neuro
-discussed with patient son patient [facility] and mostly wheelchair-bound. No prior significant bleeding risk. Plan will be to discontinue antiplatelets tomorrow and start Eliquis. Son verbalized understanding.
-neuro consult
#leukocytosis likely stress reaction
-resolved.
-UA negative
#depression/anxiety
#dementia likely Alzheimer versus vascular. Unclear if with behavioral disturbances on the
-gabapentin,lorazepam held
-memantine, sertraline continued
-BuSpar prn for agitation
#anemia likely chronic disease
-hgb stable at 10.8
-no active bleeding
-ctm
#CKD stage 3b
-cr 1.5
-ctm
#chronic transaminase
-AST 44,ALT 40
-trend
#atrial fib likely paroxysmal
-obtain EKG
-HR controlled
-amiodarone continued
-will start eliquis-per neuro okay to start on 02/10
#hypothyroidism
-levothyroxine continued
#DVT prophylaxis
-scd
#CODE status
-DNR
Updated son over the phone in detail
Anticipated Discharge: Within 24 hours
Subjective/Interval History
-
Date of Service: February 10, 2024
remains confused but at baseline per family
passed shallow eval
Objective Data
-
Labs:
Laboratory Results
02/10/24
05:55
WBC 9.4
Hgb 12.9
Hct 38.7
Plt Count 331
Sodium 139
Potassium 4.2
Chloride 106
Carbon Dioxide 25
BUN 28 H
Creatinine 1.4 H
Glucose 83
Calcium 9.8
Total Bilirubin 0.8
AST 37 H
ALT 39 H
Alkaline Phosphatase 120
Vital Signs:
Vital Signs
Temp Pulse Resp BP Pulse Ox
98.8 F 57 18 162/76 97
02/10/24 07:35 02/10/24 07:32 02/10/24 07:32 02/10/24 07:32 02/10/24 07:32
Data Reviewed
-
Total Time Spent with Patient (in minutes): 57
--- NOTE | 2024-02-10 13:30 | CM ---
Addendum entered by Angelica [place] RN 02/10/24 13:45:
CM spoke with nursing at [facility]. They are willing to have her return. CM faxed PT, OT and speech notes to [facility]. Patient was known to home care PT at [facility]. Nursing is requesting a written script for PT prior to discharge.
CM spoke with son and he is in agreement with patient return to her memory care apartment.
PLAN: Return to [facility] with home PT.
[facility]

Fax
[phone]
Original Note:
CM reviewed medical records. Patient lives in Memory Care at [facility] in [place]. CM left message for DON at [facility] to clarify if they can accept back given her level of function. CM will await call back from DON.
--- NOTE | 2024-02-10 14:55 | CM ---
LEANDRA was unable to fax clinical to DON.
LEANDRA was given an alternative number
[phone]
--- NOTE | 2024-02-10 15:21 | PTCARENOTE ---
Dr. Can aware of BP, recommends allowing permissive HTN.
[2024-02-10] MEDS: LIPITOR 40 MG PO (18:20)
[2024-02-11] MEDS: RISPERDAL M-TAB (ORALLY DISINTEGRATING) 0.5 MG PO (00:09)
--- NOTE | 2024-02-11 02:02 | PTCARENOTE ---
Pt agitated and continuously yelling 'I want to go home', and 'Get me out of this place'. Pt also pulling tele leads off and ripped out IV. Tele replaced when pt briefly became pleasant. PRN given for agitation without success. MOLD LOFT WORKER notified and
STAT med ordered - See MAR for administration. Pt again pulled tele leads off. Leads not replaced; MOLD LOFT WORKER again notified. Pt now resting comfortably.
[2024-02-11] MEDS: SYNTHROID 88 MCG PO (05:57)
[2024-02-11 06:50] LABS: Mean Corp Hgb Conc. 33.3 g/dL (33.0-37.0); Mean Corpuscular Hgb 28.8 pg (27.0-31.0); Mean Corpuscular Volume 86.4 fL (81.0-99.0); Mean Platelet Volume 9.6 fL (7.4-10.4); Platelet Count 403 10^3/uL (130-400); Red Blood Cell Count 3.82 10^6/uL (4.20-5.40); Red Cell Dist. Width 13.3 % (11.5-14.5); White Blood Cell Count 8.3 10^3/uL (4.8-10.8)
[2024-02-11 07:18] LABS: ALT (SGPT) 48 U/L (0-35); AST (SGOT) 55 U/L (14-36); Albumin 3.2 g/dl (3.5-5.0); Alkaline Phosphatase 125 U/L (38-126); Blood Urea Nitrogen 27 mg/dl (7-17); Calcium 9.6 mg/dl (8.4-10.2); Carbon Dioxide 22 mmol/L (22-30); Chloride 105 mmol/L (98-107); Estimated Creatinine Clearance 25 ml/min; Glucose 80 mg/dl (70-99); Potassium 3.7 mmol/L (3.5-5.1); Sodium 136 mmol/L (135-145); Total Bilirubin 0.6 mg/dl (0.2-1.3); eGFR 41.31
[2024-02-11] MEDS: ZOLOFT 100 MG PO (07:33)
[2024-02-11] MEDS: VITAMIN D3 (cholecalciferol) 50 MCG PO (07:33)
[2024-02-11] MEDS: PACERONE 200 MG PO (07:33)
[2024-02-11] MEDS: PLAVIX 75 MG PO (07:33)
[2024-02-11] MEDS: NAMENDA 5 MG PO (07:33)
[2024-02-11] MEDS: LOW STRENGTH ASPIRIN 81 MG PO (07:33)
[2024-02-11 07:34] VITALS: BP 121/99
[2024-02-11] MEDS: BUSPAR 5 MG PO (07:35)
--- NOTE | 2024-02-11 10:47 | W.PN.HOSP.TC ---
Addendum entered and electronically signed by Billy Can MD 02/12/24 12:13:
underweight
Original Note:
Today's Communication/Plan
-
dc asa/plavix
cont statin
eliquis in am
Assessment / Plan
Assessment / Plan
General: Well Developed, Well Nourished and No Apparent Distress
HEENT: NormoCephalic, Moist mucous membranes and Atraumatic
Respiratory: Clear
Cardiac: S1/S2 and Regular Rhythm; No Murmur or Rub
GI: Soft, Non Tender, Non Distended and Normal Bowel Sounds; No Organomegaly, ostomy
Musculoskeletal: No Clubbing, No Cyanosis and No Edema
Skin: No Rash
Psych: Confused
#subacute CVA likely secondary to atrial fibrillation/cardioembolic
-CT with In the right occipital lobe, there has been development of a focal region of decreased density, which very likely represents a region of acute to subacute infarction. No evidence for associated hemorrhage.
-asa and Plavix further discotninued. statin continued
-PT/OT consult
-a1c 5.1. LDL at 97.
-no need for further imaging per neuro
-discussed with patient son patient lives at a [facility] and mostly wheelchair-bound. No prior significant bleeding risk. Plan will be to discontinue antiplatelets tomorrow and start Eliquis. Son verbalized understanding.
-Discussed with pharmacy patient with age greater than 83, weight less than 60 kg and decreased creatinine clearance and appropriate Eliquis dosing will be 2.5 mg twice daily
-Discussed with neurology okay to restart Eliquis tomorrow as already received aspirin Plavix today
-passed shallow eval.
#leukocytosis likely stress reaction
-resolved.
-UA negative
#depression/anxiety
#dementia likely Alzheimer versus vascular with intermittent behavioral disturbance
-gabapentin,lorazepam restart
-memantine, sertraline continued
-BuSpar prn for agitation
#anemia likely chronic disease
-no active bleeding
-ctm
#CKD stage 3b
-ctm
#chronic transaminase
-trend
#atrial fib likely paroxysmal
-HR controlled
-amiodarone continued
-will start eliquis-per neuro okay to start in am
#hypothyroidism
-levothyroxine continued
#DVT prophylaxis
-scd
#CODE status
-DNR
PT/OT
Updated son over the phone in detail on 02/09.
More than 30 minutes spent in discharge including
Final examination of the patient
Summarizing hospital stay
Instructions for continuing care to all relevant caregivers
Preparation of discharge records, prescriptions, and referral forms
Total time spent (in minutes): 53
Anticipated Discharge: Today
Subjective/Interval History
-
Date of Service: February 11, 2024
refusing tele
no new change in neurological exam
bp stable
Objective Data
-
Labs:
Laboratory Results
02/11/24
06:23
WBC 8.3
Hgb 11.0 L
Hct 33.0 L
Plt Count 403 H D
Sodium 136
Potassium 3.7
Chloride 105
Carbon Dioxide 22
BUN 27 H
Creatinine 1.3 H
Glucose 80
Calcium 9.6
Total Bilirubin 0.6
AST 55 H
ALT 48 H
Alkaline Phosphatase 125
Vital Signs:
Vital Signs
Temp Pulse Resp BP Pulse Ox
97.6 F 55 17 121/99 98
02/11/24 07:34 02/11/24 07:34 02/11/24 07:34 02/11/24 07:34 02/11/24 07:34
I&O
02/10/24 02/11/24 02/12/24
06:59 06:59 06:59
Intake Total 240 / 240
Output Total 350 / 350
Balance -110 / -110
--- NOTE | 2024-02-11 10:51 | W.DCSUMMARY ---
Discharge Summary
Discharge Data
Date of Admission: 02/09/24
Date of Discharge: 02/11/24
-
Pending Results: No
Hospital Course
83-year-old female past medical history of advanced dementia, atrial fibrillation, hypothyroidism was presenting from nursing facility with confusion and lethargy. Patient underwent CT of the head which showed In the right occipital lobe, there has
been development of a focal region of decreased density, which very likely represents a region of acute to subacute infarction. No evidence for associated hemorrhage. Patient was started on aspirin and Plavix. Patient was eval by neurology.
Patient mentation improved and was likely at her baseline. Neurology also recommended against any further imaging as it would not change analyst. Patient source of CVA was likely cardioembolic secondary to history of atrial fibrillation.
Patient son was updated about hospitalization and recommended patient to be started on Eliquis per neurology recommendation and son agreed. Patient with no recent bleeding events and no prior history of significant bleeding. Patient is mostly
wheelchair-bound. Patient was eval by PT and OT. Patient passed speech swallow evaluation. Patient be discharged back to SNF.
Discharge Plan
-
Patient Disposition: [facility]/SNF
Discharge Diagnosis/Procedures: acute to subacute CVA
Condition: Fair
Diet: Low Cholesterol
Activity: With assistance and As tolerated
Driving Restrictions: No driving
Referrals:
Marlin Marquez, DO [Active] - in one to two months
UNKNOWN - PT DOES,NOT KNOW [Family Provider] -
Prescriptions:
New
atorvastatin 40 mg Tablet
40 mg PO QPM 30 Days Qty: 30 0RF
Eliquis 2.5 mg Tablet
2.5 mg PO BID 30 Days Qty: 60 0RF
Continued
acetaminophen 325 mg Tablet
650 mg PO Q6HPRN PRN (Reason: temp>100)
sertraline 100 mg Tablet
100 mg PO DAILY
potassium chloride 10 mEq Tablet Extended Release
10 meq PO DAILY
levothyroxine 88 mcg Tablet
88 mcg PO DAILY
lorazepam 0.5 mg Tablet
0.5 mg PO BID
memantine 5 mg Tablet
5 mg PO BID
buspirone 5 mg tablet
5 mg PO TID
amiodarone 200 mg Tablet
200 mg PO DAILY
gabapentin 100 mg capsule
100 mg PO BID
nystatin 100,000 unit/gram Powder
1 applic TOPICAL BIDPRN PRN (Reason: prior to change)
cholecalciferol (vitamin D3) 25 mcg (1,000 unit) Tablet
50 mcg PO DAILY
Discharge Orders:
Discharge Patient (As Directed); Ordered 02/11/24
Ordered By: Billy Can
Discharge Date and Time
Discharge Date/Time: 02/11/24 18:29
Print Language: OCCITAN
[2024-02-11 11:00] VITALS: BP 161/65
--- NOTE | 2024-02-11 11:50 | CM ---
Addendum entered by MARCELL Victoria 02/11/24 14:41:
IMM signed and on chart.
Addendum entered by MARCELL Victoria 02/11/24 14:27:
Did not receive return call from [facility]. Placed return call and spoke with a national sales representative of the facility, Hazel, who checked to confirm and patient can return.
She confirmed that would be ok.
#For report [phone]
#for fax [phone]
Placed a call to patient's son. Reviewed current level of functioning and son confirmed baseline.
Medical necessity completed for transfer as well as transfer sheet.
IMM reviewed. Son agreeable to discharge.
All paperwork provided to [employer] duplicating unit supervisor for transfer.
Original Note:
Received update that patient is medically cleared for discharge. Placed a call to [facility] to review PT and confirm that patient can return to her apartment. Had to leave a voice mail message for 'Anderson' DON. Will await return call.
Plan: Case management will continue to follow and assist with discharge planning. Back to [facility] SNF.
--- NOTE | 2024-02-11 11:53 | VATNOTE ---
During routine assessment it is noted that pt does not have an IV, is written for telemetry, and discharge. Discussed with PCN, aware that pt does not have IV, instructs this RN not to start a new IV and that MD is aware.
[2024-02-11 14:43] VITALS: BP 167/82
--- NOTE | 2024-02-11 15:29 | PN.CDI ---
CDI
- -
CDI:
Physician Documentation Request
Admit Date: 02/09/24 21:18
Dear Doctor Pamella,
Clinical Indicators:
Patient admitted with subacute CVA; PMH includes dementia.
Height: 5 ft 8 in
Weight: 104 lbs 11 oz
BMI: 15.9
02/09 note/assessment: 'Underweight related to suspected inadequate energy intakes as evidenced by
BMI >19.'
If possible, please provide an associated diagnosis related to the abnormal BMI, such as:
Underweight
Cachexia
Other, please specify
Use of terms such as suspected, likely, concern for, or probable (associated with a specific diagnosis that is being evaluated, monitored, or treated as if it exists) are acceptable and can be coded in the inpatient setting, when documented at the
time of discharge.
Thank you,
Aline Lundberg RN BSN
CDI Specialist
available via tiger text
Please use your independent medical judgment in providing your response.
--- NOTE | 2024-02-11 15:36 | PN.CDI ---
CDI
- -
CDI:
Physician Documentation Request
Admit Date: 02/09/24 21:18
Dear Doctor Pamella,
Clinical Indicators:
Patient admitted with subacute CVA; PMH includes dementia.
Height: 5 ft 8 in
Weight: 104 lbs 11 oz
BMI: 15.9
02/09 note/assessment: 'Underweight related to suspected inadequate energy intakes as evidenced by
BMI < 19.'
If possible, please provide an associated diagnosis related to the abnormal BMI, such as:
Underweight
Cachexia
Other, please specify
Use of terms such as suspected, likely, concern for, or probable (associated with a specific diagnosis that is being evaluated, monitored, or treated as if it exists) are acceptable and can be coded in the inpatient setting, when documented at the
time of discharge.
Thank you,
Aline Lundberg RN BSN
CDI Specialist
available via tiger text
Please use your independent medical judgment in providing your response.
== END 2024-02-11 18:29 | disposition home or self-care (01) | DRG 65 ==
LOC: 3 WEST ACU 21:18
PROVIDERS: Registered Nurse; ADMITTING PHYSICIAN Hospitalist; ATTENDING PHYSICIAN Hospitalist; EMERGENCY PHYSICIAN Emergency Medicine; OTHER PHYSICIAN Student in an Organized Health Care Education/Training Program
DX: I63.431 Cerebral infarction due to embolism of right posterior cerebral artery (principal); F01.53 Vascular dementia, unspecified severity, with mood disturbance; F01.54 Vascular dementia, unspecified severity, with anxiety; Z68.1 Body mass index [BMI] 19.9 or less, adult; E03.9 Hypothyroidism, unspecified; Z66 Do not resuscitate; I48.0 Paroxysmal atrial fibrillation; N18.32 Chronic kidney disease, stage 3b; D63.1 Anemia in chronic kidney disease; D72.829 Elevated white blood cell count, unspecified; R74.01 Elevation of levels of liver transaminase levels; R63.6 Underweight; R29.702 NIHSS score 2; Z79.890 Hormone replacement therapy; Z79.899 Other long term (current) drug therapy; Z99.3 Dependence on wheelchair
CPT/HCPCS: 70450; 80053; 80061; 81003; 83036; 85025; 85027; 92610; 93005; 97163; 99284